=== PATIENT | female | born 1985 | race African-American/Black ===

== ENCOUNTER 2018-03-20 07:21 | Emergency (ER) | payer MEDICAID ==
[~2018-03-20] VITALS: Ht 157.5 cm; Wt 91.0 kg
[2018-03-20] MEDS ORDERED: OXYCODONE HCL/ACETAMINOPHEN 5/325MG TABLET PO ONE (09:45)
[2018-03-20] MEDS ORDERED: ONDANSETRON HCL 4MG TABLET PO ONE (09:45)
[2018-03-20 09:55] LABS: BASOPHILS % 0.4 % (0.0-2.0); EOSINOPHILS % 0.1 % (0.0-5.0); HEMATOCRIT. 35.7 % (36.0-48.0); HEMOGLOBIN. 11.9 g/dL (12.0-16.0); LYMPHOCYTES % 10.9 % (20.0-50.0); MEAN CORPUSCULAR HEMOGLOBIN 28.8 pg (28.0-32.0); MEAN CORPUSCULAR VOLUME 86.3 fL (81.0-99.0); MEAN PLATELET VOLUME 6.9 fl (7.4-10.4); MONOCYTES % 7.2 % (2.0-8.0); NEUTROPHILS % 81.4 % (40.0-76.0); PLATELET 306 x1000/uL (130-400); RED BLOOD CELL COUNT 4.14 mill/uL (4.2-5.4); RED CELL DISTRIBUTION WIDTH 14.8 % (11.6-14.6)
[2018-03-20 09:58] LABS: CHLORIDE 108 mEq/L (98-107)
[2018-03-20 09:59] LABS: PROTHROMBIN TIME 10.7 sec (9.4-11.6)
[2018-03-20 10:11] LABS: CLARITY URINE CLOUDY (CLEAR); COLOR URINE DARK YELLOW (YELLOW); KETONES URINE 3+ (NEGATIVE); LEUKOCYTE ESTERASE URINE NEGATIVE (NEGATIVE); NITRITE URINE NEGATIVE (NEGATIVE); OCCULT BLOOD URINE TRACE (NEGATIVE); PH URINE 5.5 (4.5-8.0); PROTEIN URINE TRACE (NEGATIVE); SPECIFIC GRAVITY URINE 1.025 (1.005-1.030)
[2018-03-20 10:24] LABS: HCG SCREEN NEGATIVE
[2018-03-20] MEDS ORDERED: METRONIDAZOLE 500MG TABLET PO ONE (11:45)
[2018-03-20] MEDS ORDERED: LEVOFLOXACIN 250MG TABLET PO ONE (11:45)
[2018-03-20 12:21] VITALS: BP 114/74
== END 2018-03-20 12:24 | disposition home or self-care (01) ==
LOC: ER 09:23
DX: K57.20 Diverticulitis of large intestine with perforation and abscess without bleeding (principal); F12.10 Cannabis abuse, uncomplicated; Z97.5 Presence of (intrauterine) contraceptive device
CPT/HCPCS: 36415; 74176; 80053; 81003; 83690; 84703; 85025; 85610; 99285; Q0162

== ENCOUNTER 2018-04-15 12:28 | Emergency (ER) | payer MEDICAID ==
[~2018-04-15] VITALS: Ht 167.6 cm; Wt 90.0 kg
[2018-04-15 13:28] LABS: BASOPHILS % 0.3 % (0.0-2.0); EOSINOPHILS % 0.5 % (0.0-5.0); HEMATOCRIT. 40.8 % (36.0-48.0); HEMOGLOBIN. 13.6 g/dL (12.0-16.0); LYMPHOCYTES % 10.8 % (20.0-50.0); MEAN CORPUSCULAR HEMOGLOBIN 29.3 pg (28.0-32.0); MEAN CORPUSCULAR VOLUME 87.6 fL (81.0-99.0); MONOCYTES % 7.3 % (2.0-8.0); NEUTROPHILS % 81.1 % (40.0-76.0); PLATELET 311 x1000/uL (130-400); RED BLOOD CELL COUNT 4.65 mill/uL (4.2-5.4); RED CELL DISTRIBUTION WIDTH 16.1 % (11.6-14.6)
[2018-04-15 13:35] LABS: CHLORIDE 105 mEq/L (98-107)
[2018-04-15 13:36] LABS: INR 1.1; PROTHROMBIN TIME 11.3 sec (9.4-11.6)
[2018-04-15] MEDS ORDERED: METHYLPREDNISOLONE SOD SUCC 125 MG/2 ML VIAL IV ONE (14:15)
[2018-04-15] MEDS ORDERED: LORAZEPAM 2MG/ML CPJ IV ONE (14:45)
[2018-04-15 14:54] LABS: CLARITY URINE CLOUDY (CLEAR); COLOR URINE YELLOW (YELLOW); KETONES URINE 2+ (NEGATIVE); LEUKOCYTE ESTERASE URINE 1+ (NEGATIVE); NITRITE URINE NEGATIVE (NEGATIVE); OCCULT BLOOD URINE NEGATIVE (NEGATIVE); PROTEIN URINE TRACE (NEGATIVE); SPECIFIC GRAVITY URINE 1.025 (1.005-1.030)
[2018-04-15] MEDS ORDERED: FAMOTIDINE 20MG/2ML VIAL IV ONE (15:00)
[2018-04-15] MEDS ORDERED: DIPHENHYDRAMINE 50MG/ML VIAL IV ONE (15:00)
[2018-04-15] MEDS ORDERED: SODIUM CHLORIDE 0.9% 1,000 ML IV ONE (16:30)
[2018-04-15] MEDS ORDERED: KETOROLAC 30MG/ML VIAL IV ONE (17:00)
[2018-04-15 18:07] VITALS: BP 111/69
[2018-04-16 10:17] LABS: *AMPHETAMINES SCREEN URINE NEGATIVE (NEGATIVE); *BARBITURATES SCREEN URINE NEGATIVE (NEGATIVE); *COCAINE SCREEN URINE NEGATIVE (NEGATIVE); METHADONE URINE SCREEN NEGATIVE (NEGATIVE)
[2018-04-16 10:18] LABS: PHENCYCLIDINE URINE SCREEN NEGATIVE (NEGATIVE)
[2018-04-16 10:21] LABS: *BENZODIAZEPINES SCREEN URINE NEGATIVE (NEGATIVE)
[2018-04-16 10:24] LABS: CANNABINOID URINE SCREEN PRESUMTIVE POSITIVE (NEGATIVE); OPIATES URINE SCREEN PRESUMTIVE POSITIVE (NEGATIVE)
== END 2018-04-15 18:11 | disposition home or self-care (01) ==
LOC: ER 13:18
DX: T78.40XA Allergy, unspecified, initial encounter (principal); Z79.899 Other long term (current) drug therapy; X58.XXXA Exposure to other specified factors, initial encounter
CPT/HCPCS: 36415; 80053; 80305; 81003; 83690; 84443; 85025; 85610; 93005; 96374; 96375; 99285; J1200; J1885; J2060; J2930; J3490; J7030; Z7610

== ENCOUNTER 2018-07-03 06:40 | Emergency (ER) | payer MEDICAID ==
[~2018-07-03] VITALS: Ht 167.6 cm; Wt 91.0 kg
[2018-07-03] MEDS ORDERED: DIPHENHYDRAMINE 50MG/ML VIAL IV ONE (07:30)
[2018-07-03] MEDS ORDERED: METHYLPREDNISOLONE SOD SUCC 125 MG/2 ML VIAL IV ONE (07:30)
[2018-07-03] MEDS ORDERED: EPINEPHRINE 1:1000 1 MG/ML AMP IM ONE (07:30)
[2018-07-03] MEDS ORDERED: FAMOTIDINE 20MG/2ML VIAL IV ONE (07:30)
[2018-07-03] MEDS ORDERED: ACETAMINOPHEN 650MG/20.3ML UDC PO ONE (08:45)
[2018-07-03] MEDS ORDERED: IBUPROFEN 600MG TABLET PO ONE (08:45)
[2018-07-03] MEDS ORDERED: LIDOCAINE HCL/EPINEPHRINE 1%-EPI 1:100,000 30 ML VIAL INFIL ONE (12:30)
[2018-07-03] MEDS ORDERED: LIDOCAINE HCL/EPINEPHRINE 1%-EPI 1:100,000 50 ML VIAL INFIL ONE (13:09)
[2018-07-03] MEDS ORDERED: LIDOCAINE HCL 1%/EPI 1:200,000 30 ML VIAL MC ONE (13:15)
[2018-07-03] MEDS ORDERED: LIDOCAINE HCL/EPINEPHRINE 1%-EPI 1:100,000 20 ML VIAL INFIL ONE (13:15)
[2018-07-03 13:23] VITALS: BP 130/81
== END 2018-07-03 14:06 | disposition home or self-care (01) ==
LOC: ER 07:51
DX: K61.0 Anal abscess (principal); T78.2XXA Anaphylactic shock, unspecified, initial encounter; X58.XXXA Exposure to other specified factors, initial encounter; F12.10 Cannabis abuse, uncomplicated; Z98.890 Other specified postprocedural states
CPT/HCPCS: 10060; 96372; 96374; 96375; 99284; J1200; J2930; J3490; Z7610